=== PATIENT | female | born 1940 | race Caucasian/White ===

== ENCOUNTER 2017-06-15 09:25 | Emergency (ER) | payer OTHER ==
[~2017-06-15] VITALS: Ht 154.9 cm; Wt 73.0 kg
[~2017-06-15 09:25] MED LIST: DARV PO; MEDR4PAK3 PO; ROBA750T3 PO; TAB-TAB PO
[2017-06-15 09:30] VITALS: BP 162/89; PULSE 78; RESP 16; TEMP 98.4; O2SAT 94
[2017-06-15] MEDS ORDERED: LISI-515 PO (09:45)
[2017-06-15] MEDS ORDERED: ATOR40TA16 PO (09:45)
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
[2017-06-15] MEDS ORDERED: DICL75TA PO (09:54)
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
[2017-06-15] MEDS ORDERED: ROBA500T PO (11:32)
== END 2017-06-15 11:36 | disposition home or self-care (01) ==
LOC: PHEFT 09:25
DX: S13.4XXA Sprain of ligaments of cervical spine, initial encounter (principal); M54.5 Low back pain; E78.00 Pure hypercholesterolemia, unspecified; I10 Essential (primary) hypertension; V43.52XA Car driver injured in collision with other type car in traffic accident, initial encounter
CPT/HCPCS: 72110; 72125; 99284